=== PATIENT | male | born 1940 | race Hispanic/Latino ===

== ENCOUNTER 2020-09-10 10:27 | Day surgery (SDC) | payer MEDICARE, OTHER ==
[~2020-09-10 10:27] MED LIST: SODIUM CHLORIDE 0.9% 1000 ML 1,000 ML IV SCH
[2020-09-10] MEDS ORDERED: propofoL 200 MG/20 ML VIAL IV ONE (12:04)
[2020-09-10] MEDS ORDERED: LIDOCAINE MPF (2%) 20 MG/1 ML VIAL 5 ML ONE (12:04)
[2020-09-10] MEDS ORDERED: ONDANSETRON 4 MG/2 ML INJ ONE (12:04)
[2020-09-10] MEDS ORDERED: fentaNYL 100 MCG/2 ML INJ ONE (12:04)
--- NOTE | 2020-09-10 12:31 | Procedure Note ---
Date of procedure: 09/10/20 Pre-op diagnosis: Dysphaagia and H/O Eosinophilic Esophagitis Post-op diagnosis: other (Mild, Benign Esophageal Stenosis(s/p Esophaeal Dilataion)/ H/O Eosinophilic Esophagitis/ Mold to Moderate Erosive Esophagitis/ Gastritis) Procedure: EGD with Biopsy and Esophageal Dilation (Elena Dilator 38 Fr and 42 Fr) Anesthesia: MAC Surgeon: CELIA BARNEY Estimated blood loss: minimal Pathology: list Specimen disposition: to lab Condition: stable Disposition: same day (Treat with PPI and Steroid Inhaler. Avoid aspirin and NSAID for 5 days andfollow up i 1 to 2 eeks ([phone]).)
--- NOTE | 2020-09-10 13:03 | Anesthesia Consultation ---
Anesthesia Consult and Med Hx Date of service: 09/10/20 - Airway Anesthetic Teeth Evaluation: Good ROM Head & Neck: Adequate Mental/Hyoid Distance: Adequate Mallampati Class: Class II Intubation Access Assessment: Good - Pulmonary Exam CTA: Yes - Cardiac Exam Cardiac Exam: RRR - Pre-Operative Health Status ASA Pre-Surgery Classification: ASA2 Proposed Anesthetic Plan: MAC - Endocrine Hx Hypothyroidism: Yes
--- NOTE | 2020-09-10 13:04 | Anesthesia Day of Surgery ---
Anesthesia Day of Surgery - Day of Surgery Patient Examined: Yes Patient H&P Reviewed: Yes Patient is NPO: Yes
[2020-09-10 13:31] VITALS: BP 135/73
--- NOTE | 2020-09-10 14:02 | Operative Report ---
DATE OF SURGERY: 09/10/2020 PROCEDURE: EGD with biopsy and esophageal dilation using a Elena dilator. INDICATIONS: This is an 80-year-old white male in otherwise good health, who has underlying longstanding history of eosinophilic esophagitis. The patient has lately been having problems with dysphagia and EGD was done to assess for any associated eosinophilic esophagitis and the severity of the esophagitis and also to do esophageal dilation for symptomatic relief of his symptoms of dysphagia. DESCRIPTION OF PROCEDURE: Procedure was done after getting informed consent with MAC anesthesia. Instrument was passed through the hypopharynx into the esophagus, which did show some mild benign esophageal stenosis. This was dilated at the end of the procedure with a 38 and subsequently with a 42-Georgian Elena dilator that was passed in succession. Biopsy was done from the distal esophagus to assess for the severity of the erosive esophagitis as well as from the mid esophagus to assess for any eosinophilic esophagitis. The stomach showed gastritis. Pylorus is patent. Duodenum in the first and second portion appeared normal. Biopsy was done from the gastric antrum, gastric body, and angularis incisura to rule out for H. pylori and atrophic gastritis. There was minimal bleeding associated with the procedure. No complications associated with the procedure. ASSESSMENT: Dysphagia, mild benign esophageal stenosis, status post dilation, eosinophilic esophagitis, mild to moderate erosive esophagitis and gastritis. No peptic ulcer disease noted. PLAN: To treat the patient with PPI and also to place the patient on a steroid inhaler. Wait for the biopsy results, have the patient avoid aspirin and aspirin-related products for the next few days and follow up in the office in 1-2 weeks' time. The procedure was done in the GI lab with assistance at the GI lab team, which included Shannon Corcoran, with a GI nurse, Su and with assistance of anesthesia. TID: [id number] RECEIPT: [id number] SOPHIA/PARMJIT
--- NOTE | 2020-09-10 14:56 | Post Anesthesia Evaluation ---
- Post Anesthesia Evaluation Patient Participated: Yes Airway Patent: Yes Stable Respiratory Function: Yes Nausea/Vomiting: No Temp > 96.8F: Yes Pain Manageable: Yes Adequeate Hydration: Yes Anesthesia Complications: No Block Receding Appropriately: Not Applicable Patient on Ventilator: No
== END 2020-09-10 13:20 | disposition home or self-care (01) ==
LOC: GIO 10:27
DX: R13.10 Dysphagia, unspecified (principal); K22.2 Esophageal obstruction; K29.70 Gastritis, unspecified, without bleeding; K20.90 Esophagitis, unspecified without bleeding; E03.9 Hypothyroidism, unspecified; K57.30 Diverticulosis of large intestine without perforation or abscess without bleeding; Z88.8 Allergy status to other drugs, medicaments and biological substances; Z79.899 Other long term (current) drug therapy
CPT/HCPCS: 43239; 43450; 88305; 88342; J2405; J2704; J3010; J7030

== ENCOUNTER 2021-03-11 08:52 | Day surgery (SDC) | payer MEDICARE, OTHER ==
--- NOTE | 2021-03-11 11:26 | Anesthesia Day of Surgery ---
Anesthesia Day of Surgery - Day of Surgery Patient Examined: Yes Patient H&P Reviewed: Yes Patient is NPO: Yes
--- NOTE | 2021-03-11 11:28 | Anesthesia Consultation ---
Anesthesia Consult and Med Hx Date of service: 03/11/21 - Airway Anesthetic Teeth Evaluation: Good ROM Head & Neck: Adequate Mental/Hyoid Distance: Adequate Mallampati Class: Class II Intubation Access Assessment: Good - Pre-Operative Health Status ASA Pre-Surgery Classification: ASA2 Proposed Anesthetic Plan: MAC - Pulmonary Hx Smoking: No - Endocrine Hx Hypothyroidism: Yes - Other Systems Hx Obesity: No - Additional Comments Anesthesia Medical History Comments: Was here in September 2020
[2021-03-11] MEDS ORDERED: propofoL 200 MG/20 ML VIAL IV ONE ×2 (11:47→12:13)
--- NOTE | 2021-03-11 12:28 | Procedure Note ---
Date of procedure: 03/11/21 Pre-op diagnosis: Colon Polyp Screening and Diarrhea (R/O Colitis) Post-op diagnosis: other (Solitary, Sessile Sigmoid Polyp (10 mm-removed by Hot, Snare Polypectomy)/Extensive Deep, Diverticular disease/ R/O Microscopic colitis and R/O Ileitis/ No Internal Hemorrhoids noted) Procedure: Colonoscopy with Hot Snare Polypectomy and Cold Biopsy Anesthesia: [facility] [place] Surgeon: CELIA BARNEY Estimated blood loss: minimal Pathology: list Specimen disposition: to lab Condition: stable Disposition: same day (Avoid aspirin ad NSAID for 5 days, otherwise resume home medications. Encourage fiber intake and F/=U in 1 to 2 weeks ([phone]).)
--- NOTE | 2021-03-11 13:49 | Operative Report ---
DATE OF SURGERY: 03/11/2021 PROCEDURE: Colonoscopy with hot snare polypectomy and cold biopsy. INDICATIONS: An 81-year-old white male who had a colonoscopy done as part of colon polyp screening and also to assess for diarrhea. He has an underlying history of eosinophilic esophagitis. DESCRIPTION OF PROCEDURE: Colonoscopy was done after getting informed consent with MAC anesthesia. Initial rectal exam was unremarkable. Instrument was passed through the rectum onto the cecum, which was identified by the ileocecal valve and appendiceal orifice. Visualization was [id number]. The terminal ileum was briefly intubated, showed normal mucosa. Biopsy was done to rule out for possible ileitis. There was extensive diverticula noted throughout the colon, some quite deep and on the left as well as in the transverse colon. Random biopsies were done from the cecum, ascending colon, transverse colon, descending colon, and the sigmoid to rule out for possible microscopic colitis. There was a 10-mm sessile polyp that was noted in the sigmoid that was removed by hot snare polypectomy and retrieved with minimal bleeding. The rectum did not show any internal hemorrhoid on the retroverted view. ASSESSMENT: Colon polyp screening; diarrhea; rule out microscopic colitis; rule out ileitis; extensive diverticular disease, some quite deep involving the left and the transverse colon; and a solitary sessile sigmoid polyp, 10 mm in size, removed by hot snare polypectomy and retrieved. The patient will be asked to avoid aspirin and aspirin-related products for the next few days. Encouraged to take fiber supplements. Resume home medication. Follow up in the office in 1-2 weeks' time. Procedure was done in the GI lab with assistance of the GI lab team, which included the GI nurse, the sow farm technician and with assistance of anesthesia. TID: [id number] RECEIPT: [id number] SOPHIA/TAYLA
--- NOTE | 2021-03-11 14:29 | Post Anesthesia Evaluation ---
- Post Anesthesia Evaluation Patient Participated: Yes Airway Patent: Yes Stable Respiratory Function: Yes Nausea/Vomiting: No Temp > 96.8F: Yes Pain Manageable: Yes Adequeate Hydration: Yes Anesthesia Complications: Yes Block Receding Appropriately: No
[2021-03-11 14:59] VITALS: BP 154/73
== END 2021-03-11 13:30 | disposition home or self-care (01) ==
LOC: GIO 08:52
DX: R19.7 Diarrhea, unspecified (principal); K57.30 Diverticulosis of large intestine without perforation or abscess without bleeding; K63.5 Polyp of colon; K64.0 First degree hemorrhoids; K63.89 Other specified diseases of intestine; E03.9 Hypothyroidism, unspecified; Z79.899 Other long term (current) drug therapy; Z98.890 Other specified postprocedural states; Z88.8 Allergy status to other drugs, medicaments and biological substances
CPT/HCPCS: 45380; 45385; 88305; J2704; J7030